=== PATIENT | male | born 1990 | race Caucasian/White ===

== ENCOUNTER 2020-03-04 12:06 | Emergency (ER) | payer SELFPAY ==
[2020-03-04 12:06] VITALS: BP 123/94; PULSE 75; RESP 19; TEMP 37.2; O2SAT 99
[2020-03-04 12:07] VITALS: BMI 24.3
--- NOTE | 2020-03-04 12:19 | ED_ITS ---
HPI - Extremity Problem General: Chief complaint: Extremity Injury, Lower Stated complaint: LEFT ANKLE INJURY Time Seen by Provider: 03/04/20 12:11 History of Present Illness: HPI Narrative: 29 yo male comes in complaining of left ankle pain. He previously had an injury to that ankle at over reduction internal fixation he was carrying something into a shed and inversion injury of his ankle is concerned he broke it again there is a small abrasion over the m edial malleolus is taped and splinted when he arrived here. He states he is up-to-date on all of his immunizations he denies any other injuries. No other recent illnesses. MD Complaint: extremity pain and extremity swelling Onset (ago): minute(s) Pain Consistency: constant Location: left Quality: sharp Relieving factors: medication Exacerbating factors: weight bearing and palpation Associated symptoms: Reports no associated symptoms; Deny chest pain, fever(s) or rash Context: immobilization Review of Systems Const: Denies: fever(s), chills, body aches, change in appetite, fatigue or malaise ENMT: Denies: throat pain, ear or mastoid pain, nasal discharge or nasal congestion Card: Denies: chest pain, edema, dyspnea on exertion or orthopnea Resp: Denies: dyspnea, productive cough or non-productive cough GI: Denies: abdominal pain, nausea, vomiting, hematemesis, coffee ground emesis, diarrhea, constipation, bloating, hematochezia or melena : Denies: flank pain, dysuria, urinary frequency or urinary urgency Skin/Breast: Denies: rash or pruritus PFSH ED PFSH: Social History Smoking and tobacco status: current every day smoker Physical Exam Const: COMMON NORMALS: no acute distress GENERAL APPEARANCE: cooperative and comfortable ORIENTATION/CONSCIOUSNESS: Yes awake, Yes oriented to person, Yes oriented to place and Yes oriented to time HENMT: COMMON NORMALS: normocephalic, atraumatic, hearing grossly normal bilaterally, external ears normal, EAC's normal, TM's normal bilaterally, Normal nasal mucous membranes and turbinates present, moist oral mucous membranes and oropharynx normal HEAD & SCALP: normocephalic and atraumatic NOSE: Normal nasal mucous membranes and turbinates present EXTERNAL EAR: Yes external ears normal EXTERNAL AUDITORY CANAL: EAC's normal TYMPANIC MEMBRANE: TM's n ormal bilaterally Eye: COMMON NORMALS: Equal, round and reactive pupils present, EOMs intact bilaterally, conjunctivae normal and no scleral icterus CONJUNCTIVA: Yes conjunctivae normal PUPIL: Yes Equal, round and reactive pupils present Neck/C-Spine: COMMON NORMALS: full ROM, no lymphadenopathy, supple and no JVD Lymph: LYMPHATIC: no lymphadenopathy noted and no lymphedema noted Resp: COMMON NORMALS: normal respiratory effort, No retractions, No use of accessory muscles and clear to auscultation bilaterally AUSCULTATION: clear to auscultation bilaterally Cardio: COMMON NORMALS: no JVD, regular rate, regular rhythm and No murmurs present (Cardio) RATE: regular rate RHYTHM: regular rhythm GI: COMMON NORMALS: Soft to palpation and No hepatosplenomegaly present AUSCULTATION: Yes normoactive bowel sounds PALPATION: Yes Soft to palpation, No Tenderness to palpation present (GI), No Guarding due to palpation present (GI) and Yes No hepatosplenomegaly present Extremity: NARRATIVE EXTREMITY EXAM: Patient's left ankle is bandaged and splinted with a combination of aluminum splint and blanket this was removed there is a small superficial abrasion over the medial malleolus there is no obvious deformity the posterior tibialis and dorsalis pedis pulses are +2 of 4 there is good capillary refill no open lacerations. GENERAL: No calf tenderness Neuro: SENSORIUM/ORIENTATION: Yes oriented to person, Yes oriented to place and Yes oriented to time Skin: COMMON NORMALS: no rashes or lesions noted GENERAL SKIN EXAM: no rashes or lesions noted Course Vital Signs: Vital signs: Vital Signs Temperature 98.9 F 03/04/20 12:06 Pulse Rate 72 03/04/20 13:36 Respiratory Rate 23 H 03/04/20 13:36 Blood Pressure 142/104 03/04/20 13:36 Pulse Oximetry 99 03/04/20 13:36 MDM - Extremity (Nontraumatic) Lab Data: Labs: Lab Results 03/04/20 03/04/20 Range/Units 12:35 12:35 WBC 11.1 H (4.0-10.0) 10^3/ uL RBC 4.69 (4.1-5.3) 10^6/u L Hgb 14.2 (11.7-16.6) g/dL Hct 43.4 (42.0-52.0) % MCV 92.5 (80-94) fL MCH 30.3 (28.0-34.0) pg MCHC 32.7 (30.0-36.0) g/dL RDW 14.8 (12.1-15.1) % Plt Count 429 H (130-400) 10^3/c mm MPV 10.0 (7.4-10.4) fL Neut % (Auto) 48.0 % Lymph % (Auto) 38.4 % [place] % (Auto) 10.2 % Eos % (Auto) 2.5 % Baso % (Auto) 0.5 % Neut # (Auto) 5.3 (1.8-7.7) 10^3/u L Lymph # (Auto) 4.3 (0.8-4.8) 10^3/u L [place] # (Auto) 1.1 H (0.2-0.9) 10^3/u L Eos # (Auto) 0.3 (0.0-0.8) 10^3/u L Baso # (Auto) 0.1 (0.0-0.1) 10^3/u L Nucleated RBC % (a uto) 0 % Nucleated RBCs # 0.0 /100WBC Sodium 141 (136-145) mmol/L Potassium 3.7 (3.5-5.1) mmol/L Chloride 106 (98-107) mmol/L Carbon Dioxide 20 L (22-29) mmol/L Anion Gap 18.7 (5-19) BUN 12 (6-20) mg/dL Creatinine 0.8 (0.7-1.2) mg/dL GFR Calculation 113.5 (90-130) mL/min Glucose 102 (65-115) mg/dL Calculated Osmolal ity 288 (285-295) mOsm/k g Calcium 9.8 (8.5-10.5) mg/dL Discharge Plan Discharge Patient Disposition: Home, Self-Care Clinical Impression: Ankle sprain and strain, Abrasion of ankle Condition: Stable Prescriptions: New mupirocin 2 % ointment 1 applic TOPICAL BID Qty: 15 RF: 0 diclofenac sodium 75 mg tablet,delayed release (DR/EC) 75 mg PO Q12H PRN (Reason: pain) Qty: 20 RF: 0 No Action lisinopril 10 mg Tablet 10 mg PO DAILY RF: 0 Discharge Orders: Discharge Order (Routine); Ordered 03/04/20 Ordered By: Margarito Pretty Discharge Diet: Usual diet Discharge Activity: Increase activity as tolerated Activity Restrictions/Additional Instructions: If persists follow-up with the orthopedist Discharge Date/Time: 03/04/20 13:36 Coding Level of Care Code ED Shipping And Receiving Coordinator for Jere Fwd Exam Comprehensive
[2020-03-04 12:23] VITALS: O2SAT 94
--- NOTE | 2020-03-04 12:30 | XR_ITS ---
WS: [id number] XR ankle LT min 3V* [id number] REASON FOR EXAM: trauma/pain FINDINGS: This study shows fractures of the distal tibia and fibula seen stabilized with internal fix ation the metal plates bilaterally are satisfactory place. The fractures appear to be in good alignme nt. No definite callus formation is seen. XR/XR ankle LT min 3V* [id number] IMPRESSION: Stable appearing fractures of the distal tibia fibula with internal fixation
--- NOTE | 2020-03-04 12:43 | PC.NURSE ---
nurse in room with er physician to assess left ankle out of splint. abrasion noted to left side of ankle. NOT open fracture
[2020-03-04 12:44] LABS: Basophils # 0.1 10^3/uL (0.0-0.1); Basophils % 0.5 %; Eosinophils # 0.3 10^3/uL (0.0-0.8); Eosinophils % 2.5 %; Hematocrit 43.4 % (42.0-52.0); Hemoglobin 14.2 g/dL (11.7-16.6); Lymphocytes # 4.3 10^3/uL (0.8-4.8); Lymphocytes % 38.4 %; Mean Corpuscular HGB Conc 32.7 g/dL (30.0-36.0); Mean Corpuscular Hemoglobin 30.3 pg (28.0-34.0); Mean Corpuscular Volume 92.5 fL (80-94); Monocytes # 1.1 10^3/uL (0.2-0.9); Monocytes % 10.2 %; Neutrophils # 5.3 10^3/uL (1.8-7.7); Nucleated Red Blood Cells % 0 %; Platelet Count 429 10^3/cmm (130-400); Red Blood Count 4.69 10^6/uL (4.1-5.3); Red Cell Distribution Width 14.8 % (12.1-15.1); White Blood Count 11.1 10^3/uL (4.0-10.0)
--- NOTE | 2020-03-04 12:51 | PC.NURSE ---
PORTABLE XRAY AT BEDSIDE
[2020-03-04 13:14] LABS: Anion Gap 18.7 (5-19); Blood Urea Nitrogen 12 mg/dL (6-20); Calcium 9.8 mg/dL (8.5-10.5); Carbon Dioxide 20 mmol/L (22-29); Chloride 106 mmol/L (98-107); Glomerular Filtration Rate 113.5 mL/min (90-130); Glucose 102 mg/dL (65-115); Osmolality Calculated 288 mOsm/kg (285-295); Potassium 3.7 mmol/L (3.5-5.1); Sodium 141 mmol/L (136-145)
[2020-03-04 13:36] VITALS: BP 142/104; PULSE 72; RESP 23; O2SAT 99
--- NOTE | 2020-03-04 13:36 | PC.NURSE ---
pt refused crutches or crutch training. pt left ambulatory
--- NOTE | 2020-03-04 13:43 | PC.NURSE ---
20 g IV removed from Left AC space. Tip intact, pressure dressing applied
== END 2020-03-04 13:36 | disposition home or self-care (01) ==
PROVIDERS: Emergency Provider Family Medicine
DX: S93.402A Sprain of unspecified ligament of left ankle, initial encounter (principal); S96.912A Strain of unspecified muscle and tendon at ankle and foot level, left foot, initial encounter; S90.512A Abrasion, left ankle, initial encounter; X58.XXXA Exposure to other specified factors, initial encounter; F17.210 Nicotine dependence, cigarettes, uncomplicated
CPT/HCPCS: 12345; 36415; 73610; 80048; 85025; 99282; 99283